=== PATIENT | male | born 1965 | race Caucasian/White ===

== ENCOUNTER 2020-03-31 14:20 | Emergency (ER) | payer SELFPAY ==
--- NOTE | 2020-03-31 14:44 | ER Document Report ---
ED Medical Screen (RME) - General Chief Complaint: Leg Pain Stated Complaint: LEG PAIN Time Seen by Provider: 03/31/20 14:43 Notes: This 55-year-old male presented emergency room today stating he has discomfort to the posterior aspect of his right lower extremity after placing his back to the bumper of a car and trying to push against it to help it dislodge from a curb. I greeted and performed a rapid initial assessment of this patient. Com prehensive ED assessment and evaluation of the patient, analysis of test results and completion of the medical decision making process will be conducted by additional ED providers. - Related Data Allergies/Adverse Reactions: cyclobenzaprine [From Flexeril] Allergy (Verified 03/31/20 14:41) Physical Exam - Vital signs Vitals: Temp Pulse Resp BP Pulse Ox 98.1 F 86 16 208/113 H 89 L 03/31/20 14:24 03/31/20 14:24 03/31/20 14:24 03/31/20 14:24 03/31/20 14:24 Course - Vital Signs Vital signs: Temp Pulse Resp BP Pulse Ox 98.1 F 86 16 208/113 H 89 L 03/31/20 14:24 03/31/20 14:24 03/31/20 14:24 03/31/20 14:24 03/31/20 14:24
--- NOTE | 2020-03-31 15:29 | RADIOLOGY REPORT (SQ) ---
EXAM DESCRIPTION: TIBIA FIBULA RIGHT IMAGES COMPLETED DATE/TIME: 03/31/2020 3:18 pm REASON FOR STUDY: pain COMPARISON: None. NUMBER OF VIEWS: Two views. TECHNIQUE: Two radiographic images acquired of the right tibia and fibula to include the knee and an kle in at least one projection. LIMITATIONS: None. FINDINGS: MINERALIZATION: Normal. BONES: Old fractures of the distal tibia and fibula status post maricel and interlocking screw fixation. No acute fracture. SOFT TISSUES: No foreign body. OTHER: No other significant finding. IMPRESSION: Old fractures. TECHNICAL DOCUMENTATION: JOB ID: [id number] [employer]- All Rights Reserved Reading location - IP/workstation name: [email or web address]
[2020-03-31] MEDS ORDERED: OXYCODONE-ACETAMINOPHEN 5-325 MG TABLET PO ONE (15:57)
--- NOTE | 2020-03-31 16:02 | ER Document Report ---
ED Extremity Problem, Lower - General Chief Complaint: Leg Pain Stated Complaint: LEG PAIN Time Seen by Provider: 03/31/20 14:43 Notes: CHIEF COMPLAINT: Right calf injury HPI: 55-year-old male with history of prior fracture with maricel and screws in the right lower extremity presenting for injury to the right calf today. Patient was attempting to help someone whose car was stuck up on a curb. States he bent down to grab the bumper and attempted to lift the car up slightly so that the person could get the tire over the curb and felt something pop or tear in the right upper calf. Complains of severe pain with movement and a burning sensa tion in the calf muscle. ROS: See HPI - all other systems were reviewed and are otherwise negative Constitutional: no fever Integumentary: no rash Allergy: no hives Musculoskeletal: + extremity pain or swelling Neurological: no numbness/tingling MEDICATIONS: I agree with the patient medications as charted by the RN. ALLERGIES: I agree with the allergies as charted by the RN. PAST MEDICAL HISTORY/PAST SURGICAL HISTORY: Reviewed and agree as charted by RN. SOCIAL HISTORY: Reviewed and agree as charted by RN. FAMILY HISTORY: No significant familial comorbid conditions directly related to patient complaint EXAM: Reviewed vital signs as charted by RN. CONSTITUTIONAL: Alert and oriented and responds appropriately to questions. Well-appearing; well-nourished, moderate distress secondary to pain HEAD: Normocephalic; atraumatic EYES: Conjunctivae clear, sclerae non-icteric ENT: normal nose; no rhinorrhea; moist mucous membranes NECK: Supple without meningismus CARD: Capillary refill less than 3 seconds; symmetric distal pulses RESP: Normal chest excursion without splinting or tachypnea ABD/GI: non-distended BACK: The back appears normal EXT: There is some limited flexion extension of the right foot at the ankle which patient relates is due to the fusion and injury had previously. Dorsalis pedis and posterior tibial pulses are present on the right foot and ankle. Unable to palpate a definitive deficit over the distal Achilles. Unable to perform Tavarez test due to patient range of motion restrictions. There is moderate tenderness without visible bruising to the right mid and upper calf. SKIN: Normal color for age and race; warm; dry; good turgor; no acute lesions noted NEURO: Motor and sensory function intact PSYCH: The patient's mood and manner are appropriate. Grooming and personal hygiene are appropriate. MDM: 55-year-old male with what is likely a partial calf muscle tear. X-ray done through triage process does not show evidence of new fracture. Unable to definitively rule out an Achilles injury. Patient has crutches at home. Will treat patient's pain, refer to orthopedics for further outpatient evaluation which may include MRI - Related Data Allergies/Adverse Reactions: cyclobenzaprine [From Flexeril] Allergy (Verified 03/31/20 14:41) Past Medical History - Social History Smoking Status: Never Smoker Frequency of alcohol use: None Drug Abuse: None Family History: Reviewed & Not Pertinent Patient has homicidal ideation: No Physical Exam - Vital signs Vitals: Temp Pulse Resp BP Pulse Ox 98.1 F 86 16 208/113 H 89 L 03/31/20 14:24 03/31/20 14:24 03/31/20 14:24 03/31/20 14:24 03/31/20 14:24 Course - Re-evaluation Re-evalutation: 03/31/20 16:02 Patient is moderately uncomfortable but was noted to have significantly elevated blood pressure will have nursing recheck a manual pressure and notify me of any abnormalities prior to discharge. Patient indicates she does not have a history of high blood pressure - Vital Signs Vital signs: Temp Pulse Resp BP Pulse Ox 98.1 F 78 18 154/99 H 97 03/31/20 14:41 03/31/20 16:07 03/31/20 16:07 03/31/20 16:07 03/31/20 16:07 Discharge - Discharge Clinical Impression: Injury of right lower extremity Qualifiers: Encounter type: initial encounter Qualified Code(s): S89.91XA - Unspecified injury of right lower leg, initial encounter Hypertension Qualifiers: Hypertension type: essential hypertension Qualified Code(s): I10 - Essential (primary) hypertension Condition: Stable Disposition: HOME, SELF-CARE Additional Instructions: Limited weightbearing as discussed. Pain medication as prescribed do not drive if taking narcotics for pain. Follow-up closely with orthopedics for further evaluation and treatment call for appointment. X-ray did not show evidence of a fracture although I suspect that you likely have a partial calf muscle tear or Achilles injury Prescriptions: Oxycodone HCl/Acetaminophen [Percocet 5-325 mg Tablet] 1 tab PO Q4H PRN #15 tab PRN Reason: Diclofenac Sodium [Voltaren 50 Mg Tablet.Dr] 50 mg PO BID #20 tablet. Referrals: JOVI MARTÍNEZ MD [ACTIVE STAFF] - Follow up as needed
[2020-03-31 16:07] VITALS: BP 154/99
== END 2020-03-31 16:47 | disposition home or self-care (01) ==
LOC: ER 14:20
DX: S89.91XA Unspecified injury of right lower leg, initial encounter (principal); M79.604 Pain in right leg; M79.89 Other specified soft tissue disorders; X50.0XXA Overexertion from strenuous movement or load, initial encounter; Z88.8 Allergy status to other drugs, medicaments and biological substances; I10 Essential (primary) hypertension
CPT/HCPCS: 99283